=== PATIENT | male | born 1965 | race Caucasian/White ===

== ENCOUNTER 2016-11-15 10:32 | Day surgery (SDC) | payer OTHER ==
[2016-11-15] VITALS (9 sets, daily range): BP systolic 99–122; BP diastolic 59–80; PULSE 64–87; RESP 16–18; O2SAT 95–99
[~2016-11-15] VITALS: Ht 172.7 cm; Wt 98.2 kg
[~2016-11-15 10:32] MED LIST: AMLO10TA3 PO; CeFAZolin 2 Gm/50 mL D5W IV Premix IV ONE; HYDR12.5 PO; LOSA50TA37 PO; Lactated Ringer's 1,000 ML IV ONE
[2016-11-15] MEDS ORDERED: Propofol 10,000 mCg/mL 20 mL Inj ONE (10:33)
[2016-11-15] MEDS ORDERED: fentaNYL-PF 50 mCg/mL 2 mL Inj ONE (10:33)
[2016-11-15] MEDS ORDERED: Phenylephrine/NS 100 mCg/mL 10 mL Syringe IVPUSH ONE (10:33)
[2016-11-15] MEDS ORDERED: Rocuronium 10 mg/mL 5 mL Inj ONE (10:33)
[2016-11-15] MEDS ORDERED: Ondansetron 2 mg/mL 2 mL Inj ONE (10:33)
[2016-11-15] MEDS ORDERED: Ropivacaine-PF 0.5% 30 mL Inj ONE (10:33)
[2016-11-15] MEDS ORDERED: Phenylephrine 10,000 mCg/mL Inj ONE (10:33)
[2016-11-15] MEDS ORDERED: Dexamethasone 4 mg/mL Inj ONE (10:33)
--- NOTE | 2016-11-15 11:04 | PCM.HPANE ---
Patient Data Surgeon Admitting Provider: Attending Provider:Gilbert Juarez DO Primary Care Physician:Vero Other Provider:Mando Lantigua Anesthesia Reason for Visit Right Shoulder Rotator Cuff Tear Ht/WT & BMI Height (Feet): 5 Height (Inches): 8 Weight (Kilograms): 100.335 Body Mass Index 33.00 Allergies Coded Allergies: No Known Allergies (Unverified , 11/09/16) Past Anesthesia History Anesthesia History: Denies:: Anesthesia Reactions, Malignant Hyperthermia Diabetes History Hx Diabetes?: No MRSA MRSA: No Medications Hypertension Medication: Yes (LOSARTAN,AMLODIPINE,HCTZ) Home Meds Incl Beta Rito: No Reported Medications Amlodipine 10 Mg [id number] Mg PO DAILY Ref 0 11/09/16 Losartan Potassium 50 Mg [id number] Mg PO DAILY 09/06/16 Hydrochlorothiazide 12.5 Mg [id number] Mg PO DAILY 30 Days Ref 0 09/01/16 History History of ENT Problems?: No Hx of Heart Problems?: Yes Cardiovascular History: Positive for:: Hypertension Denies:: Heart Murmur Valvular Heart Disease Hx of Respiratory Problem?: No Respiratory History: Denies:: Use of C-PAP Machine Hx Neurologic Problems?: No Hx of GI Problems?: Yes Other GI Pertinent History: S/P APPY Hx of Problems?: No Male Hx: Denies:: Prostate Problems Scrotal Mass Testicular Surgery Skin History: Denies:: History Skin Disorders? Pressure Ulcers Hx Musculoskeletal Problems?: Yes Musculoskeletal History: Positive for:: Musculoskeletal Trauma (RT SHOULDER ROTATOR CUFF TEAR=CURRENT PROBLEM) Hx of Psycho/Social Problems?: No Hx Surgeries?: Yes (Appendectomy 2012) Hx Any Other Health Problems?: Yes Other History: Denies:: Cancer Endocrine Disease Hospitalization Thyroid Disease History Blood Transfusions: Denies:: Blood Transfusions Hx Diabetes: No Hx Alcohol Use: YesAlcoholic Drinks Per Day: 6 PK/BEER/DAYHave You Smoked inLast 12 mo: No Stop/Bang S-Snoring: Do You Snore Loudly: No T-Tired: feel tired, fatigued: No O-Obsered: Observed not breath: No P-Blood Pressure: treated: Yes B- Body Mass Index > 35 kg/m2: No A- Age over 50: Yes N- Neck Large Circumference: Yes G- Gender Male: Yes SUNDEEP Total Score: 4 Risk Assessment Category Category 1A: Patient has history of documented sleep apnea, and HAS NOT received any narcotic, sedative or anesthesia administration during this stay. Category 1B: Patient has history of documented sleep apnea, and HAS received any narcotic , sedative or anesthesia administration during this stay Category 2: Patient has SUSPECTED Obstructive Sleep Apnea, and HAS received any narcotic , sedative or anesthesia administration during this stay. Category 3: Patient has SUSPECTED Obstructive Sleep Apnea and HAS NOT received narcotic, sedative or anesthesia administration during this stay. Category 4: Outpatient in Procedural Areas with known sleep apnea or who screen positive for High Risk via the STOP/BANG questionnaire. Exam Exam General Appearance: Alert, Oriented X3, Cooperative, No Acute Distress HEENT/AIRWAY: MP 2 Lungs: Clear to Auscultation, Normal Air Movement Heart: Exam Unremarkable, Regular Rate/Rhythm, No Murmurs/Rubs/Gallops Plan Impression Patient chart reviewed, patient interviewed and anesthestic plan with risks, benefits, and alternatives discussed, and informed consent obtained. NPO Status: 09/05/16 ASA Physical Status: ASA2 Mod Systemic Disease Anesthetic Plan: GA, Regional Block Bene/Risks/Altern/Consents: Yes HP Complete Prior to Induction: Yes Legihton Swartz MD Nov 15, 2016 09:50
[2016-11-15] MEDS ORDERED: Lidocaine 1%-Epi 1:100,000 20 mL Inj INFILTRATE ONE (12:08)
[2016-11-15] MEDS ORDERED: Lactated Ringer's 1,000 ML IV SCH (12:37)
[2016-11-15] MEDS ORDERED: Lactated Ringer's 500 ML IV PRN (12:37)
[2016-11-15] MEDS ORDERED: Phenylephrine 10,000 mCg/mL Inj IVPUSH PRN (12:40)
[2016-11-15] MEDS ORDERED: Atropine 0.4 mg/mL Inj IVPUSH PRN (12:40)
[2016-11-15] MEDS ORDERED: HYDROmorphone 1 mg/mL Inj IVPUSH PRN (12:40)
[2016-11-15] MEDS ORDERED: hydrALAZINE 20 mg/mL Inj IVPUSH PRN (12:40)
[2016-11-15] MEDS ORDERED: MetoCLOpramide 5 mg/mL 2 mL Inj IVPUSH PRN (12:40)
[2016-11-15] MEDS ORDERED: EPHEDrine Sulfate 50 mg/mL Inj IVPUSH PRN (12:40)
[2016-11-15] MEDS ORDERED: fentaNYL-PF 50 mCg/mL 2 mL Inj IVPUSH PRN (12:40)
[2016-11-15] MEDS ORDERED: Ondansetron 2 mg/mL 2 mL Inj IVPUSH PRN (12:40)
[2016-11-15] MEDS ORDERED: Dexamethasone 4 mg/mL Inj IVPUSH PRN (12:40)
[2016-11-15] MEDS ORDERED: Labetalol 5 mg/mL 4 mL Inj IV PRN (12:40)
[2016-11-15] MEDS ORDERED: oxyCODONE-Acetamin 5-325 mg Tablet PO PRN (13:30)
[2016-11-15] MEDS ORDERED: hydrOXYzine Pamoate 25 mg Capsule PO PRN (13:30)
--- NOTE | 2016-11-15 13:41 | PCM.ANEP1 ---
Post Anesthesia Phase 1 PACU Phase 1 Assessment Vital Signs Vital Signs Date Time Temp Pulse Resp B/P Pulse Ox O2 Delivery O2 Flow Rate FiO2 11/15/16 10:44 36.7 78 18 118/70 98 Room Air Anesthetic Administered: GA Level of Alertness: Awake, talking AYERS's with Equal Strength: Yes Pain: No Nausea or Vomiting: No Oxygen Delivery: Room Air Lungs: Clear to Auscultation, Normal Air Movement Dermatome Level: Full Sensation Leighton Swartz MD Nov 15, 2016 13:41
--- NOTE | 2016-11-15 14:31 | PCM.ANEP2 ---
Post Anesthesia Evaluation ASA/CMS Post Anesthesia VS in Patient's Normal Range?: Yes Resp Stable; Airway Patent?: Yes CV Function & Hydration Stable: Yes Mental Status Recovered?: Yes Pain control Satisfactory?: Yes N/V Control Satisfactory?: Yes Leighton Swartz MD Nov 15, 2016 14:31
--- NOTE | 2016-11-15 21:23 | OP ---
[address] [address] OPERATIVE REPORT PATIENT: SATURNINO MAURO : 1965 MR#: [id number] ADMIT: 11/15/2016 JOB ID: [id number] DATE OF SURGERY: 11/15/2016 PREOPERATIVE DIAGNOSIS(ES): Right shoulder rotator cuff tear with impingement. POSTOPERATIVE DIAGNOSIS(ES): Right shoulder rotator cuff tear with impingement. PROCEDURE: Right shoulder video arthroscopy with subacromial decompression and arthroscopic rotator cuff repair. SURGEON: Gilbert Juarez DO. ORDER SELECTOR: Ebony Dillard PA-C. INDICATIONS: The patient is a 51-year-old male who injured his right shoulder about six months ago. [place] a pop in his shoulder. He had an MRI scan which demonstrated a rotator cuff tear. We discussed treatment options for this and he wished to proceed with a rotator cuff repair after failing conservative measures. We originally had surgery scheduled in August, however, he had significant hypertension and we canceled his surgery to get his hypertension under better control. He is now under good control, continues to have some difficulty with lifting the arm to the side and overhead and wished to proceed with a shoulder arthroscopy. We discussed risks, benefits, and possible complications of surgery. All questions were answered and he wished to proceed. PROCEDURE IN DETAIL: The patient was brought to the operating room. He was given a preoperative antibiotic, interscalene block and general anesthetic. He was placed comfortably into the beach chair position. The right shoulder was sterilely prepped and draped. An incision was made over the posterolateral shoulder for a posterolateral portal and inspection was undertaken. His glenohumeral joint was found to be free of any articular damage. He had some slight redness or erythema over the superior labrum which was debrided with the shaver, but the biceps tendon itself was intact and without tearing as was the superior labrum. The subscapularis was intact. The scope was removed and then replaced into the subacromial space, and a soft tissue subacromial decompression was undertaken. He had a small spur and the bur was used to remove about 2 or 3 mm of bone impinging anteriorly and laterally. Next, the rotator cuff was addressed. This tear was very anterior and the biceps tendon could be seen through the tear. I elected to repair this with a fiber tape going to a lateral anchor and then two simple interrupted stitches side to side to close the margin. I initially placed the fiber tape getting good purchase in the cuff tissue with a horizontal mattress. I then placed two simple stitches using a scorpion and bird beaks, tied these thereby affecting a nice rotator cuff repair and then added the fiber tape to the lateral row anchor which was a swivel-like lock Arthrex anchor, had excellent purchase and fixation. The sutures were all cut to appropriate length and the scope was then removed. The portals were closed with interrupted nylon suture. Sterile dressings were applied. Patient tolerated the procedure well. Blood loss was minimal. POSTOPERATIVE PROTOCOL: Have the patient maintain his arm sling for six weeks with no lifting and no active abduction and follow up for recheck with me at that time at which point we will begin physical therapy.
== END 2016-11-15 23:59 | disposition home or self-care (01) ==
LOC: SAS 10:32
PROVIDERS: ATTEND Orthopaedic Surgery
DX: M75.121 Complete rotator cuff tear or rupture of right shoulder, not specified as traumatic (principal); M75.21 Bicipital tendinitis, right shoulder; M19.011 Primary osteoarthritis, right shoulder; Y93.H2 Activity, gardening and landscaping; Y92.9 Unspecified place or not applicable; I10 Essential (primary) hypertension; Z87.891 Personal history of nicotine dependence
CPT/HCPCS: 29826; 29827; 76942; J0171; J0690; J1100; J2250; J2370; J2405; J2795; J7120